=== PATIENT | male | born 1955 | race Caucasian/White ===

== ENCOUNTER 2024-06-19 10:02 | Outpatient (AMB) | payer MEDICARE, SELFPAY ==
[2024-06-19 10:33] VITALS: BMI 35.0
--- NOTE | 2024-06-19 10:33 | A.SPINEOV_ITS ---
Vital Signs 06/19/24 10:33 Height 5 ft 8 in Weight 230 lb BMI 35.0 Intake Visit Reasons: disorder of sacrum Intake Note: Mr. Nelson is here today c/o low back pain that radiates to the legs making it difficult to walk. Exhibitions And Collections Manager Required: No Allergies No Known Allergies Allergy (Verified 06/19/24 10:37) Physical Exam Vital Signs: BMI result Body Mass Index 35.0 Assessment & Plan Assessment & Plan (1) Sacroiliitis, not elsewhere classified: Code(s): M46.1 - Sacroiliitis, not elsewhere classified Category: Medical Plan Dear colleague Thank you for referring Honorio Nelson to the office today with a chief complaint of pain in the right SI joint region. HPI: This 15-year-old male had a fall on his buttocks several years ago and since that time he is suffering from severe pain predominantly on the right side in the SI joint region radiating into the thigh area. 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 Everything else causes severe pain. He denies numbness or weakness. He had an SI joint injection done with lidocaine and steroid that gave him complete relief for 3 days. He said he has never been that happy after that injection. He is referred for a possible SI joint fusion. The following conservative treatment options were tried without success antiinflammatories, tylenol, physical therapy, chiropractic therapy PMH: Hypertension, hypercholesterolemia Medications: Losartan, atorvastatin, amlodipine, escitalopram, acyclovir Allergies: NKDA Social history: Nonsmoker Physical Exam: Pleasant male. SI joint provocative tests are positive on the right side. Motor sensory and reflexes are symmetrically intact. Radiological Studies: MRI of the lumbar spine done at [facility] shows age-appropriate changes in the lumbar spine. Impression/Plan: This 68-year-old male is most likely suffering from sacroiliitis after a traumatic event. The pain is disabling. A diagnostic and therapeutic injection gave him complete relief. I offered him an SI joint fusion, right side. He is tentatively scheduled for 07/30/2024 depending on insurance approval. He will get a preoperative clearance from his primary care physician. Thank you for allowing me to participate in your patients care. total time spent was 50 minutes in counseling ,coordination of plan, personal review of imaging, surgical decision making and subsequent plan Tevin Pennings MD, PhD Spine Fellowship Trained Neurosurgeon Director, [facility] Coding Level of Care Code New Pt Level 4 (49826) Diagnoses Sacroiliitis, not elsewhere classified M46.1
== END 2024-06-19 11:58 | disposition home or self-care (01) ==
PROVIDERS: PCP Family Medicine; Visit Provider Neurological Surgery
DX: M46.1 Sacroiliitis, not elsewhere classified (principal)
CPT/HCPCS: 99204

== ENCOUNTER → 2024-06-19 10:02 | Outpatient (BNVA) | payer MEDICARE, SELFPAY | PROVIDERS: PCP Family Medicine; Visit Provider Neurological Surgery | DX: M46.1 Sacroiliitis, not elsewhere classified (principal) | CPT/HCPCS: 99202 ==

== ENCOUNTER 2024-08-20 14:22 | Outpatient (REF) | payer MEDICARE, SELFPAY ==
--- OUTSIDE RECORDS SUMMARY | 2024-08-20 15:12 | XMS_ITS ---
Patient Encounters Created on: August 17, 2024 Honorio Mccann : 1955 Sex: Male Author Name Jan Gonzalez Address [address] [address] [facility]. Address [address] [address]
== END 2024-08-20 14:23 | disposition home or self-care (01) ==
LOC: HO.HOSX 14:22
PROVIDERS: Visit Provider Physician Assistant
DX: Z13.89 Encounter for screening for other disorder (principal)

== ENCOUNTER 2024-10-21 09:48 | Outpatient (AMB) | payer MEDICARE, SELFPAY ==
--- NOTE | 2024-10-21 09:53 | A.OFFVIS_ITS ---
Vital Signs 10/21/24 09:54 Height 5 ft 8 in Weight 249 lb BMI 37.9 BP 157/79 H Blood Pressure Location Rt brachial Position Sitting Respiration 18 Pulse 62 Pulse Source Pulse Oximeter Pulse Oximetry (%) 98 Oxygen Delivery Method Room Air Intake Visit Reasons: SIJ BLOCK DISCUSSION Brakeshoe Repairer Required: No Allergies No Known Allergies Allergy (Verified 10/21/24 09:55) HPI Comments Details: Honorio is very pleasant 69 years old gentleman who presents in my office with complains on axial lower back pain with minimal radiation into bilateral lower extremities. He reports that he started to feel this pain years ago. He reports unpleasant vibration sensation in the left thigh in conjunction with this pain. He reports that prolonged sitting without the cushion aggravate his pain he reports that walking and standing for long period of time aggravate his pain. Negative Valsalva maneuver, he reports hot showers make his pain better. Because of his pain he can not do activities of daily living, but he can sleep normally, he can take care of himself and he can function normally. He is retired individual. In terms of tissue damage he describes his pain as dull, sore, hurting, aching, heavy sensation. He had multiple images including MRI of the lumbar spine. He went to Dr. Alonso and received from Dr. Stack is bilateral sacroiliac joint injection with steroids!!! This procedure lasted only 4 days. He received multiple sessions of physical therapy and he continues home exercise program at this time. His past medical history is negative. His past surgical history is negative. He denies smoking cigarettes admits drinking alcohol he drinks coffee and caffeinated beverages and he denies recreational drugs. Review of Systems Const All systems reviewed & are unremarkable except as noted in HPI and below ENT Reports Normal hearing present Neuro Reports Normal hearing present, Denies Abnormal speech present, Denies confusion and Denies Sensory deficit (Neuro) Psych Denies confusion Physical Exam Vital Signs: Last Vital Signs Pulse 62 10/21/24 09:54 Resp 18 10/21/24 09:54 BP 157/79 H 10/21/24 09:54 Pulse Ox 98 10/21/24 09:54 Oxygen Delivery Method Room Air 10/21/24 09:54 BMI result Body Mass Index 37.9 Const General: no acute distress; No confusion Nutritional Appearance: obese morbidly obese Orientation/consciousness: patient oriented x3 and No confusion Eyes General: appearance normal, both eyes and all related structures Pupils: Equal, round and reactive pupils present EOM: EOMs intact bilaterally Neck Neck: Yes full ROM Chest Chest palpation & inspection: normal inspection of the chest Resp Effort & Inspection: normal respiratory effort, able to speak in complete sentences, normal respiratory pattern, no audible wheezes and no cough Cardio Jugular venous distension: no JVD GI Inspection: Yes normal to inspection Back/Spine/Pelvis Other: There is no tenderness on palpation in paraspinal spinal region lumbar spine. There is minimal tenderness on palpation in projection of the sacral bone. There is no tenderness on palpation in projection of the sacroiliac joints. Nicanor test is negative bilaterally. Gaenslen test is negative bilaterally. Pelvic distraction test is negative bilaterally. On performance of Nicanor test patient complains on pain in the groin but NOT the pain in the projection of the sacroiliac joints on the back. Valsalva maneuver is negative bilaterally. Loading test is equivocal bilaterally. There is minimal tenderness on palpation in paraspinal region in the projection of the L5-S1 area. Neuro General: patient oriented x3, gait normal and No confusion Cranial nerves: Yes CN's II-XII intact bilaterally, Yes Equal, round and reactive pupils present, Yes Normal hearing present and Yes Ability to bilaterally elevate shoulders present Speech: No Abnormal speech present Gait exam (Neuro): Normal gait present Motor exam (neuro): 5/5 motor strength present throughout Sensory Exam: No Sensory deficit (Neuro) Extrem General: No pedal edema Psych Speech and movement: Normal speech and movement present Affect: normal affect Attitude: cooperative Thought process: Normal thought process present Thought content: Normal thought content present Insight: Good insight present (Psych) Judgement: Good judgement present (Psych) Assessment & Plan Assessment & Plan (1) Vertebrogenic low back pain: Code(s): M54.51 - Vertebrogenic low back pain Category: Medical (2) Spondylosis of lumbar region without myelopathy or radiculopathy: Code(s): M47.816 - Spondylosis without myelopathy or radiculopathy, lumbar region Category: Medical (3) Chronic pain syndrome: Code(s): G89.4 - Chronic pain syndrome Category: Medical Plan On physical exam as above there is no signs of sacroiliitis or sacroiliac joint dysfunction of this patient. Possibility exists that this patient has facet joints pain and I offered him to go for diagnostic medial branch block bilateral L3-L4 dorsal ramus L5. Also I was asking this patient to sign medical information release note for me and we will receive the information from Dr. Alonso who apparently performed injection with steroids into patient's sacroiliac joints. If it was done with steroids it was rendered non valid diagnostic test. I also suspect that with history of prolonged sitting pain this patient may have vertebra genic pain syndrome. To evaluate this condition I need to have the MRI images of the lumbar spine of this patient. He had an MRI performed that [facility] I requested the patient to bring me the disc from [facility] to evaluate that MRI. Patient Instructions: I here by testify that I spent 45 minutes in conversation with this patient as well as planning his care and organizing this note. Coding Level of Care Code New Pt Level 4 (33922) Diagnoses Vertebrogenic low back pain M54.51 Spondylosis of lumbar region without myelopathy or radiculopathy M47.816 Chronic pain syndrome G89.4
[2024-10-21 09:54] VITALS: BP 157/79; PULSE 62; RESP 18; O2SAT 98; BMI 37.9
== END 2024-10-21 10:32 | disposition home or self-care (01) ==
LOC: HO.PMC 09:48
PROVIDERS: PCP Family Medicine; Referring Provider Physician Assistant; Visit Provider Anesthesiology
DX: M54.51 Vertebrogenic low back pain (principal); M47.816 Spondylosis without myelopathy or radiculopathy, lumbar region; G89.4 Chronic pain syndrome
CPT/HCPCS: 99204

== ENCOUNTER → 2024-10-21 09:48 | Outpatient (BNVA) | payer MEDICARE, SELFPAY | PROVIDERS: PCP Family Medicine; Referring Provider Physician Assistant; Visit Provider Anesthesiology | DX: M54.51 Vertebrogenic low back pain (principal); M47.816 Spondylosis without myelopathy or radiculopathy, lumbar region; G89.4 Chronic pain syndrome | CPT/HCPCS: 99202 ==

== ENCOUNTER 2025-01-05 06:12 | Outpatient (REF) | payer MEDICARE, SELFPAY ==
--- NOTE | ~2025-01-05 | FL_ITS ---
EXAMINATION: FL GUIDANCE ONLY HISTORY: M47.816 - Spondylosis without myelopathy or radiculopathy, lumbar region COMPARISON: None available. TECHNIQUE: Fluoroscopy time: 1 minute, 3 seconds. Cumulative Dose: 18.9 mGy. DAP: 527.02 uGym2 Images: 13. FINDINGS: Fluoroscopic spot films of the lumbar spine in the AP projection demonstrate needles and contrast material in the regions of the bilateral L3-4, L4-5, and L5-S1 facet joints. FL/FL guidance in treatment room IMPRESSION: Fluoroscopy during procedure. Please see procedure report for additional information. Electronically signed by: Can Foster MD 01/07/2025 07:21 AM EDT
--- OUTSIDE RECORDS SUMMARY | 2025-01-05 06:14 | XMS_ITS | Encounter Summary ---
Author Organization [facility] Address [address] [place] [address] Phone Care Team Providers Care Hospital Liaison Name Role Phone Paris Osuna MD Primary Care Provider + [phone] Alvarado Rangel DO Primary Care Provider + [phone] Reason for Referral * Physical Therapy (Routine) - Closed Specialty Diagnoses / Procedures Referred By Contac t Referred To Contact Physical Therapy Diagnoses Encounter for rehabilitation Paris Osuna MD [address] [place] [address] Phone: tel: fax: [email or web address] [place] [address] Phone: tel: Referral ID Status Reason Start Date Expiration Date Visits Re quested Visits Authorized [id number] Closed 06/08/2022 04/14/2023 99 99 Encounter Details Date Type Department Care Team (Latest Contact Info) Description 06/08/2022 Transcribe Orders [facility] [address] [place] [address] Paris Osuna MD [address] [place], [place] [id number] [email or web address] Encounter for rehabilitation (Primary Dx) Social History Tobacco Use Types Packs/Day Years Used Date Smoking Tobacco: Never Smokeless Tobacco: Never Alcohol Use Standard Drinks/Week Comments Yes 2 (1 standard drink = 0.6 oz pur e alcohol) Sex and Gender Information Value Date Recorded Sex Assigned at Not on file Legal Sex Male 9:57 PM EDT Gender Identity Not on file Sexual Orientation Not on file documented as of this encounter Plan of Treatment Not on file documented as of this encounter Procedures Procedure Name Priority Date/Time Associated Diagnosis Comments AMB REFERRAL TO [facility] PHYSICAL THERAPY Routine 06/20/2022 7:40 AM EST Encounter for rehabilitation documented in this encounter Results * Ambulatory referral to [facility] Physical Therapy (06/20/2022 7:40 AM EST) Other us Paris Osuna MD AMB [facility] REFERRALS Final R esult documented in this encounter Visit Diagnoses Diagnosis Encounter for rehabilitation- Primary documented in this encounter Care Teams Hospital Liaison Relationship Specialty Start Date End Date Paris Osuna MD [address] [place] [address] [email or web address] PCP - General Family Medicine 04/21/2012/07 Alvarado Rangel DO [address] [address] PCP - General Family Medicine 12/09/23 documented as of this encounter Additional Source Comments The information contained in this document represents components of the legal health record. It is not the complete legal health record.[facility]
--- OUTSIDE RECORDS SUMMARY | 2025-01-05 06:14 | XMS_ITS | Clinical Summary ---
Author Organization [facility] Address [address] [id number] Phone Care Team Providers Care Debarker Operator Name Role Phone Alvarado Rangel DO Primary Care Provider Allergies No known active allergies Medications escitalopram oxalate (LEXAPRO) 20 MG tablet Take 20 mg by mouth daily. Active atorvastatin (LIPITOR) 20 MG tablet Take 20 mg by mouth daily. Active acyclovir (ZOVIRAX) 400 MG tablet Take 400 mg by mouth daily as needed. Active aspirin 81 MG EC tablet Take 81 mg by mouth daily. Active multivitamin-min erals-lutein (CENTRUM SILVER) Tab Take 1 tablet by mouth daily. Active glucosamine sulfate dipot chlr (GLUCOSAMINE SULFATE DIPOTASSIUM CHLORIDE) 1,000 mg Cap capsule Take 1,000 mg by mouth 2 (two) times a day. Active bacillus coagulans-inulin 1 billion-250 cell-mg Cap Take 250 mg by mouth daily. Active ALPRAZolam (XANAX) 0.5 MG tablet Take 0.5 mg by mouth nightly at bedtime as needed for sleep. Active Active Problems Problem Noted Date Diagnosed Date Disorder of sacrum 12/26/2023 Social History Tobacco Use Types Packs/Day Years Used Date Smoking Tobacco: Never Smokeless Tobacco: Never Alcohol Use Standard Drinks/Week Comments Yes 2 (1 standard drink = 0.6 oz pur e alcohol) Education Answer Date Recorded Are you interested in more education? Not on haris e 08/10/2022 Are you concerned about learning? Not on file 08/10/2022 No 08/10/2022 No 08/10/2022 Digital Access Answer Date Recorded No 09/08/2022 No 09/08/2022 No 09/08/2022 Reliable internet access at home? Not on file 09/08/2022 Device with a working camera? Not on file Sex and Gender Information Value Date Recorded Sex Assigned at Not on file Legal Sex Male 9:57 PM EDT Gender Identity Not on file Sexual Orientation Not on file Last Filed Vital Signs Vital Sign Reading Time Taken Comments Blood Pressure 139/65 04/21/2020 8:23 AM EST Pulse 72 04/21/2020 7:33 AM EST Temperature 36 C (96.8 F) 04/21/2020 8:09 AM EST Respiratory Rate 16 04/21/2020 8:23 AM EST Oxygen Saturation 96% 04/21/2020 8:23 AM EST Inhaled Oxygen Concentration - - Weight 108.9 kg (240 lb) 02/17/2024 2:38 PM EST Height 172.7 cm (5' 8 ) 02/17/2024 2:38 PM EST Body Mass Index 36.49 02/17/2024 2:38 PM EST Plan of Treatment Health Maintenance Due Date Last Done Comments LIPID PANEL 1955 DEPRESSION SCREENING 1965 HEPATITIS C SCREENING 06/30/1971 COLOGUARD 1998 FIT TEST 1998 FOBT 1998 SIGMOIDOSCOPY 1998 VIRTUAL COLONOSCOPY 1998 ZOSTER VACCINES (2 of 3) 03/27/2017 01/30/2017 INFLUENZA VACCINE (#1) 2024 , 03/23/2021, 02/02/2020, Additional history exists COVID-19 VACCINE ( season) 2024 07/28/2021, 03/02/2021, 07/21/2020, Additional history exists Adult Td,Tdap Booster 01/26/2025 01/26/2015, 004 RSV VACCINE (1 - 1-dose 75+ series) 2028 COLONOSCOPY 04/21/2030 04/21/2020 COLORECTAL CANCER SCREENING 04/21/2030 SMOKING STATUS SCREENING (Once After 26 Yrs) Completed 04/21/2020 PNEUMOCOCCAL VACCINES (50+ years) Completed 10/07/2020, 03/13/2019 HEPATITIS A VACCINES Aged Out No long er eligible based on patient's age to complete this topic HIB VACCINES Aged Out No longer eligi ble based on patient's age to complete this topic MENINGOCOCCAL VACCINES (ACWY) Aged Out No longer eligible based on patient's age to complete this topic MENINGOCOCCAL VACCINES (B) Aged Out N o longer eligible based on patient's age to complete this topic Medical Devices Not on file Procedures Procedure Name Priority Date/Time Associated Diagnosis Comments ENDOSCOPY, COLON 04/21/2020 7:24 AM EST from Last 3 Months or Most Recently Relevant to Health Maintenance Results * ENDOSCOPY, COLON (04/21/2020 7:24 AM EST) Narrative Transcriptions Chauncey Araya MD - 04/21/2020 7:24 AM EST Patient Name: Honorio Nelson Attending MD:: CHAUNCEY ARAYA MD Procedure Date: 04/21/2020 7:24 AM Date of : 1955 Age: 64 Admit Type: Outpatient Gender: Male Room: [place] [address] Referring MD: Paris Osuna Exam Type: Colonoscopy Indications: Last colonoscopy: May 2011, Abdominal pain inthe right upper quadrant, Change in bowel habits Medications: Propofol per Anesthesia Procedure: Informed consent was obtained from the patient after discussion of the indications, limitations, alternatives, benefits, and risks of the procedure. Risks specifically discussed include but are not limited to medication reactions, missed lesions, bleeding, perforation, or the need for emergentsurgery. Throughout the procedure, the patient's bloodpressure, pulse, end-tidal CO2, and oxygen saturations were monitored continuously. The Olympus adult variable colonoscope [id number] #5was introduced through the anus and advanced to the terminal ileum, with identification of theappendiceal orifice and IC valve. The terminal ileum, ileocecal valve, appendiceal orifice, and rectum were photographed. The colonoscopy was performed without difficulty. The patient tolerated the procedurewell. The quality of the bowel preparation was excellent.The bowel preparation used was GoLYTELY via split dose instruction. Complications: No immediate complications. Estimated blood loss:None. Findings: The perianal and digital rectal examinations were normal. Pertinent negatives include normal prostate (size, shape, and consistency). The retroflexed view of the distal rectum and anal verge was normal and showed no anal or rectal abnormalities. Many medium-mouthed diverticula were found in the sigmoid colon. The exam was otherwise without abnormality. The terminal ileum appeared normal. Retroflexion in the right colon was performed. Biopsies for histology were taken with a coldforceps from the ascending colon, transverse colon and descending colon for evaluation of microscopiccolitis. Impression: - The distal rectum and anal verge are normal on retroflexion view. - Moderate diverticulosis in the sigmoid colon. - The examination was otherwise normal. - The examined portion of the ileum was normal. - Biopsies were taken with a cold forceps from the ascending colon, transverse colon and descendingcolon for evaluation of microscopic colitis. Recommendation: - Await pathology results. - Use fiber, for example Citrucel, Fibercon, Konsylor Metamucil. - Repeat colonoscopy in 10 years for screeningpurposes. CHAUNCEY ARAYA MD 04/21/2020 8:12:09 AM This report has been signed electronically. Number of Addenda: 0 Note Initiated On: 04/21/2020 7:24 AM Procedure Code(s): --- Professional --- 77971, Colonoscopy, flexible; with biopsy, single or multiple --- Technical --- 05384, Colonoscopy, flexible; with biopsy, single or multiple Diagnosis Code(s): --- Professional --- R10.11, Right upper quadrant pain R19.4, Change in bowel habit K57.30, Diverticulosis of large intestine without perforation or abscess without bleeding --- Technical --- R10.11, Right upper quadrant pain R19.4, Change in bowel habit K57.30, Diverticulosis of large intestine without perforation or abscess without bleeding CPT copyright 2018 [employer]. All rights reserved. The codes documented in this report are preliminary and upon coder operator reviewmay be revised to meet current compliance requirements. Procedure Date: 04/21/2020 7:24:16 AM [address] [place] [address] Paris Osuna MD GI PROCEDURE ORDERABLES F inal Result from Last 3 Months or Most Recently Relevant to Health Maintenance Insurance MEDICARE PART A & B [place] BLUE REPLACEMENT MEDICARE PART A & B MEDICARE PPO BLUE REPLACEMENT MEDICARE PART A & B MEDICARE PART A & B MEDICARE PART A & [place] BLUE RE[place]AC[place] MEDICARE PART A & B MEDICARE PART A & B [facility] MEDICARE PPO BLUE REPLACEMENT MEDICARE PART A & B [facility] MEDICARE PPO BLUE REPLACEMENT MEDICARE PART A & B [place] BLUE REPLACEMENT Care Teams Debarker Operator Relationship Specialty Start Date End Date Alvarado Rangel DO [address] [address] PCP - General Family Medicine 12/09/23 Additional Source Comments The information contained in this document represents components of the legal health record. It is not the complete legal health record.[facility]
--- OUTSIDE RECORDS SUMMARY | 2025-01-05 06:14 | XMS_ITS | Encounter Summary ---
Author Organization [facility] Address [address] [place] [address] [place] [address] Phone Care Team Providers Care Churn Operator Margarine Name Role Phone Paris Osuna MD Primary Care Provider [phone] Alvarado Rangel DO Primary Care Provider [phone] Encounter Details Date Type Department Care Team (Latest Contact Info) Description 05/23/2021 Transcribe Orders Virtual Department [address] [place] [address] Emmanuel Araya MD [address] [place] [phone] [email or web address] RUQ pain (Primary Dx) Social History Tobacco Use Types [...] on file documented as of this encounter Visit Diagnoses Diagnosis RUQ pain- Primary Abdominal pain, right upper quadrant documented in this encounter Care Teams Churn Operator Margarine Relationship Specialty Start Date End Date Paris Osuna MD [address] [place] [address] [email or web address] PCP - General Family Medicine 04/21/2012/07 Alvarado Rangel DO [address] [address] PCP - General Family Medicine 12/09/23 documented as of this encounter Additional Source Comments The information contained in this document represents components of the legal health record. It is not the complete legal health record.[facility]
--- OUTSIDE RECORDS SUMMARY | 2025-01-05 06:14 | XMS_ITS | Encounter Summary ---
Author Organization [facility] Address [address] [facility] [address] [place] [address] Phone Care Team Providers Care Evp Managing Director Name Role Phone Alvarado Rangel DO Primary Care Provider Encounter Details Date Type Department Care Team ([facility] st Contact Info) Description 01/10/2024 Procedure Pass [facility], [address] [address] Social History Tobacco Use Types Packs/Day Years [...] documented as of this encounter Visit Diagnoses Not on filedocumented in this encounter Care Teams Evp Managing Director Relationship Specialty Start Date End Date Alvarado Rangel DO [address] [facility] [address] [place] [address] PCP - General Family Medicine 12/09/23 documented as of this encounter Additional Source Comments The information contained in this document represents components of the legal health record. It is not the complete legal health record.[facility]
--- OUTSIDE RECORDS SUMMARY | 2025-01-05 06:14 | XMS_ITS | Encounter Summary ---
Author Organization [facility] Address [address] [place] [address] Phone Care Team Providers Care Plant Operations Engineer Name Role Phone Paris Osuna MD Primary Care Provider [phone] Alvarado Rangel DO Primary Care Provider [phone] Encounter Details Date Type Department Care Team ([facility] st Contact Info) Description 04/21/2020 Procedure Pass [facility] Endoscopy Admitting Dept Virtual Department [address] [place] [address] Social History Tobacco Use Types Packs/Day Years [...] on filedocumented in this encounter Care Teams Plant Operations Engineer Relationship Specialty Start Date End Date Paris Osuna MD [address] [place] [address] [email or web address] PCP - General Family Medicine 04/21/2012/07 Alvarado Rangel DO [address] [address] PCP - General Family Medicine 12/09/23 documented as of this encounter Additional Source Comments The information contained in this document represents components of the legal health record. It is not the complete legal health record.[facility]
== END 2025-01-05 06:13 | disposition home or self-care (01) ==
LOC: CF 06:12
PROVIDERS: Visit Provider Anesthesiology
DX: M47.816 Spondylosis without myelopathy or radiculopathy, lumbar region (principal)
CPT/HCPCS: 64493; 64494; J2003; J2795; Q9967

== ENCOUNTER 2025-01-05 09:46 | Outpatient (AMB) | payer MEDICARE, SELFPAY ==
--- NOTE | 2025-01-05 09:57 | MHC.OFFVIS ---
Vital Signs 01/05/25 09:58 Height 5 ft 8 in Weight 260 lb BMI 39.5 BP 145/69 H Blood Pressure Location Lt brachial Position Sitting Respiration 18 Pulse 65 Pulse Source Pulse Oximeter Pulse Oximetry (%) 95 Oxygen Delivery Method Room Air Intake Visit Reasons: Bilateral Diagnostic L3-L4-DR L5 MBB Drawbridge Operator Required: No Allergies No Known Allergies Allergy (Verified 10/21/24 09:55) Physical Exam Vital Signs: Last Vital Signs Pulse 65 01/05/25 09:58 Resp 18 01/05/25 09:58 BP 145/69 H 01/05/25 09:58 Pulse Ox 95 01/05/25 09:58 Oxygen Delivery Method Room Air 01/05/25 09:58 BMI result Body Mass Index 39.5 Assessment & Plan Assessment & Plan (1) Spondylosis of lumbar region without myelopathy or radiculopathy: Code(s): M47.816 - Spondylosis without myelopathy or radiculopathy, lumbar region Category: Medical Plan Diagnostic medial branch block L3,L4 dorsal ramus L5 bilateral.? ? ?Informed consent was explained to the patient. All questions were explained and? answered.? The patient was taken inside the operating room where he was positioned prone on the operating table. Time-out was performed delineating correct site, side, the nature of the procedure, patient's allergy, . All operating room staff was participating in OR time-out procedure. ? ? The lower back was prepped with ChloraPrep and draped with sterile utility towels.? C-arm was brought over the operating field and sq picture of L4-, L5 vertebra and S1 AREA were delineated on the screen.? Point of interest were delineated as confluence of superior articular process of L4 and L5 vertebra bilaterally with corresponding transverse processes as well as confluence of the sacral alae bilaterally with superior articular process of S1.? The projection of the point of interest to the skin were injected with the small amount of local anesthetic lidocaine 2% mixed with ropivacaine 0.5% 1-1 approximately 1 cc.? After that 22 gauge 3.5 inch spinal needle was driven sequentially to the points of interest in tunnel vision fashion. After needles gently contacted the bone at the point of interests the needle was injected with small amount of the contrast.? The injection of the contrast did not demonstrate any intravascular or intrathecal spread of the contrast.? After that injection of the? ropivacaine 0.5%-1cc was performed at each needle location.?After that the needles were removed and Bandaids were applied. Orders: Orders FL guidance in treatment room Today M47.816 - Spondylosis without myelopathy or radiculopathy, lumbar region Coding Level of Care Code Procedure Only Diagnoses Spondylosis of lumbar region without myelopathy or radiculopathy M47.816
[2025-01-05 09:58] VITALS: BP 145/69; PULSE 65; RESP 18; O2SAT 95; BMI 39.5
== END 2025-01-05 10:47 | disposition home or self-care (01) ==
LOC: HO.PMCPRC 09:46
PROVIDERS: PCP Family Medicine; Visit Provider Anesthesiology
DX: M47.816 Spondylosis without myelopathy or radiculopathy, lumbar region (principal)
CPT/HCPCS: 64493; 64494

== ENCOUNTER 2025-01-07 09:49 | Outpatient (AMB) | payer MEDICARE, SELFPAY ==
[2025-01-07 09:59] VITALS: BP 154/86; PULSE 75; RESP 18; O2SAT 97
--- NOTE | 2025-01-07 09:59 | MHC.OFFVIS ---
Vital Signs 01/07/25 09:59 Weight 250 lb BP 154/86 H Blood Pressure Location Lt brachial Position Sitting Respiration 18 Pulse 75 Pulse Source Pulse Oximeter Pulse Oximetry (%) 97 Oxygen Delivery Method Room Air Intake Visit Reasons: S/P Bilateral Diagnostic L3-L4-DR L5 MBB Director Critical Care Required: No Allergies No Known Allergies Allergy (Verified 01/07/25 09:58) HPI Comments Details: Honorio is back in my office after diagnostic bilateral medial branch block. The patient reported absence of pain immediately after the procedure. He stated that his pain was very low for the 1st 5 hours after the procedure. He admits that the heaviness of his lower extremities remain however he understood that the heaviness and pain in the legs maybe related to other issues in his lumbar spine. He reported excellent activities of daily living and perfect mobility after the injection. We discussed possibility of treating his pain with to modalities: Radiofrequency ablation of the L3, L4, dorsal ramus L5 medial branches bilateral. As well as sprint PNS L5 bilateral to alleviate his pain. I explained to the patient that radiofrequency ablation would be very difficult to perform because of significant scoliosis and rotational deformity of the spine. He after my explanation decided to go for Sprint PNS. Prior: Axial lower back pain with minimal radiation into bilateral lower extremities. The pain is mostly axial and most likely facetogenic in nature. He reports that he started to feel this pain years ago. He reports unpleasant vibration sensation in the left thigh in conjunction with this pain. He reports that prolonged sitting without the cushion aggravate his pain he reports that walking and standing for long period of time aggravate his pain. Negative Valsalva maneuver, he reports hot showers make his pain better. He went to Dr. Alonso and received from Dr. Stack is bilateral sacroiliac joint injection with steroids!!! This procedure lasted only 4 days. He received multiple sessions of physical therapy and he continues home exercise program at this time. He reports only minimal help from HEP. Review of Systems Const All systems reviewed & are unremarkable except as noted in HPI and below ENT Reports Normal hearing present Neuro Reports Normal hearing present, Denies Abnormal speech present, Denies confusion and Denies Sensory deficit (Neuro) Psych Denies confusion Physical Exam Vital Signs: Last Vital Signs Pulse 75 01/07/25 09:59 Resp 18 01/07/25 09:59 BP 154/86 H 01/07/25 09:59 Pulse Ox 97 01/07/25 09:59 Oxygen Delivery Method Room Air 01/07/25 09:59 Const General: no acute distress; No confusion Nutritional Appearance: obese morbidly obese Orientation/consciousness: patient oriented x3 and No confusion Eyes General: appearance normal, both eyes and all related structures Pupils: Equal, round and reactive pupils present EOM: EOMs intact bilaterally Neck Neck: Yes full ROM Chest Chest palpation & inspection: normal inspection of the chest Resp Effort & Inspection: normal respiratory effort, able to speak in complete sentences, normal respiratory pattern, no audible wheezes and no cough Cardio Jugular venous distension: no JVD GI Inspection: Yes normal to inspection Back/Spine/Pelvis Other: There is no tenderness on palpation in paraspinal spinal region lumbar spine. There is minimal tenderness on palpation in projection of the sacral bone. There is no tenderness on palpation in projection of the sacroiliac joints. Nicanor test is negative bilaterally. Gaenslen test is negative bilaterally. Pelvic distraction test is negative bilaterally. On performance of Nicanor test patient complains on pain in the groin but NOT the pain in the projection of the sacroiliac joints on the back. Valsalva maneuver is negative bilaterally. Loading test is equivocal bilaterally. There is minimal tenderness on palpation in paraspinal region in the projection of the L5-S1 area. Neuro General: patient oriented x3, gait normal and No confusion Cranial nerves: Yes CN's II-XII intact bilaterally, Yes Equal, round and reactive pupils present, Yes Normal hearing present and Yes Ability to bilaterally elevate shoulders present Speech: No Abnormal speech present Gait exam (Neuro): Normal gait present Motor exam (neuro): 5/5 motor strength present throughout Sensory Exam: No Sensory deficit (Neuro) Extrem General: No pedal edema Psych Speech and movement: Normal speech and movement present Affect: normal affect Attitude: cooperative Thought process: Normal thought process present Thought content: Normal thought content present Insight: Good insight present (Psych) Judgement: Good judgement present (Psych) Assessment & Plan Assessment & Plan (1) Vertebrogenic low back pain: Code(s): M54.51 - Vertebrogenic low back pain Category: Medical (2) Spondylosis of lumbar region without myelopathy or radiculopathy: Code(s): M47.816 - Spondylosis without myelopathy or radiculopathy, lumbar region Category: Medical (3) Chronic pain syndrome: Code(s): G89.4 - Chronic pain syndrome Category: Medical Plan On physical exam as above there is no signs of sacroiliitis or sacroiliac joint dysfunction of this patient. Most likely his pain is facetogenic in nature. Results of diagnostic L3, L4, dorsal ramus L5 bilateral discussed as above. Patient was given options to treat his pain as RFA versus PNS. He chose to go for PNS. I will schedule him for the right-sided and after that for the left-sided procedure. Patient Instructions: I here by testify that I spent 32 minutes in conversation with this patient as well as planning his care and organizing this note. Coding Level of Care Code Est Pt Level 4 (22126) Diagnoses Vertebrogenic low back pain M54.51 Spondylosis of lumbar region without myelopathy or radiculopathy M47.816 Chronic pain syndrome G89.4
--- OUTSIDE RECORDS SUMMARY | 2025-01-07 11:44 | XMS_ITS | Encounter Summary ---
Author Organization [facility] Address [address] [place] [address] Phone Care Team Providers Care Employee Development Director Name Role Phone Prais Osuna MD Primary Care Provider [phone] Alvarado Rangel DO Primary Care Provider [phone] Encounter Details Date Type Department Care Team ([facility] st Contact Info) Description 04/21/2020 Procedure Pass [facility] Endoscopy Admitting Dept Virtual Department [address] [place] [id number] Social History Tobacco Use Types Packs/Day Years [...] on filedocumented in this encounter Care Teams Employee Development Director Relationship Specialty Start Date End Date Paris Osuna MD [address] [place] [address] [email or web address] PCP - General Family Medicine 04/21/2012/07 Alvarado Rangel DO [address] [address] PCP - General Family Medicine 12/09/23 documented as of this encounter Additional Source Comments The information contained in this document represents components of the legal health record. It is not the complete legal health record.[facility]
--- OUTSIDE RECORDS SUMMARY | 2025-01-07 11:44 | XMS_ITS | Encounter Summary ---
Author Organization [facility] Address [address] [place] [address] [place] [address] Phone Care Team Providers Care Customs Collector Name Role Phone Paris Osuna MD Primary Care Provider [phone] Alvarado Rangel DO Primary Care Provider [phone] Encounter Details Date Type Department Care Team (Latest Contact Info) Description 05/23/2021 Transcribe Orders Virtual Department [address] [place] [address] Emmanuel Araya MD [address] [place] [address] [email or web address] RUQ pain (Primary Dx) Social History Tobacco [...] quadrant documented in this encounter Care Teams Customs Collector Relationship Specialty Start Date End Date Paris Osuna MD [address] [place] [address] [email or web address] PCP - General Family Medicine 04/21/2012/07 Alvarado Rangel DO [address] [address] PCP - General Family Medicine 12/09/23 documented as of this encounter Additional Source Comments The information contained in this document represents components of the legal health record. It is not the complete legal health record.[facility]
--- OUTSIDE RECORDS SUMMARY | 2025-01-07 11:44 | XMS_ITS | Encounter Summary ---
Author Organization [facility] Address [address] [facility] [address] [place] [address] Phone Care Team Providers Care Brake Repairer Air Name Role Phone Alvarado Rangel DO Primary Care Provider [phone] Encounter Details Date Type Department Care Team ([facility] st Contact Info) Description 01/10/2024 Procedure Pass [facility], [address] [address] Social History Tobacco Use Types Packs/Day Years [...] on filedocumented in this encounter Care Teams Brake Repairer Air Relationship Specialty Start Date End Date Alvarado Rangel DO [address] [facility] [address] [place] [address] PCP - General Family Medicine 12/09/23 documented as of this encounter Additional Source Comments The information contained in this document represents components of the legal health record. It is not the complete legal health record.[facility]
--- OUTSIDE RECORDS SUMMARY | 2025-01-07 11:44 | XMS_ITS | Clinical Summary ---
Author Organization [facility] Address [address] [id number] Phone Care Team Providers Care Furniture Restorer Name Role Phone Alvarado Rangel DO Primary [...] 66 Admit Type: Outpatient Gender: Male Room: [place] [address] Referring MD: Paris Osuna Exam Type: Colonoscopy [...] monitored continuously. The Olympus adult variable colonoscope [id number] #5was introduced through the anus and advanced [...] 7:24 AM Procedure Code(s): --- Professional --- 57822, Colonoscopy, flexible; with biopsy, single or multiple --- Technical --- 25739, Colonoscopy, flexible; with biopsy, single or multiple Diagnosis Code(s): --- Professional --- R10.11, Right upper quadrant pain R19.4, Change in bowel habit K57.30, Diverticulosis of large intestine without perforation or abscess without bleeding --- Technical --- R10.11, Right upper quadrant pain R19.4, Change in bowel habit K57.30, Diverticulosis of large intestine without perforation or abscess without bleeding CPT copyright 2018 [employer]. All rights reserved. The codes documented in this report are preliminary and upon property maintenance technician reviewmay be revised to meet current compliance requirements. Procedure Date: 04/21/2020 7:24:16 AM [address] [place] [address] Paris Osuna MD GI PROCEDURE [...] & B MEDICARE PART A & B [place] MEDICARE PPO BLUE REPLACEMENT MEDICARE PART A & B [place] MEDICARE PPO BLUE REPLACEMENT MEDICARE PART A & B [place] BLUE REPLACEMENT Care Teams Furniture Restorer Relationship Specialty Start Date End Date Alvarado Rangel DO [address] [address] PCP - General Family Medicine 12/09/23 Additional Source Comments The information contained in this document represents components of the legal health record. It is not the complete legal health record.[facility]
--- OUTSIDE RECORDS SUMMARY | 2025-01-07 11:44 | XMS_ITS | Encounter Summary ---
Author Organization [facility] Address [address] [place] [address] Phone Care Team Providers Care Heavy Coil Winder Name Role Phone Paris Osuna MD Primary Care Provider [phone] Alvarado Rangel DO Primary Care Provider [phone] Reason for Referral * Physical Therapy (Routine) - Closed Specialty Diagnoses / Procedures Referred By Contac t Referred To Contact Physical Therapy Diagnoses Encounter for rehabilitation Paris Osuna MD [address] [place] [address] Phone: tel: fax: [email or web address] [address] [place] [address] Phone: tel: Referral ID Status Reason Start Date Expiration Date Visits Re quested Visits Authorized [id number] Closed 06/08/2022 04/14/2023 99 99 Encounter Details Date Type Department Care Team (Latest Contact Info) Description 06/08/2022 Transcribe Orders [facility] [address] [place] [address] Paris Osuna MD [address] [place], [place] [phone] [email or web address] Encounter for rehabilitation (Primary Dx) Social History [...] Date/Time Associated Diagnosis Comments AMB REFERRAL TO [facility] PHYSICAL THERAPY Routine 06/20/2022 7:40 AM EST Encounter for rehabilitation documented in this encounter Results * Ambulatory referral to [facility] Physical Therapy (06/20/2022 7:40 AM EST) Other us Paris Osuna MD AMB [facility] REFERRALS Final R esult documented in this encounter Visit Diagnoses Diagnosis Encounter for rehabilitation- Primary documented in this encounter Care Teams Heavy Coil Winder Relationship Specialty Start Date End Date Paris Osuna MD [address] [place] [address] [email or web address] PCP - General Family Medicine 04/21/2012/07 Alvarado Rangel DO [address] [address] PCP - General Family Medicine 12/09/23 documented as of this encounter Additional Source Comments The information contained in this document represents components of the legal health record. It is not the complete legal health record.[facility]
== END 2025-01-07 10:57 | disposition home or self-care (01) ==
LOC: HO.PMC 09:49
PROVIDERS: PCP Family Medicine; Visit Provider Anesthesiology
DX: M54.51 Vertebrogenic low back pain (principal); M47.816 Spondylosis without myelopathy or radiculopathy, lumbar region; G89.4 Chronic pain syndrome
CPT/HCPCS: 99214

== ENCOUNTER → 2025-01-07 09:49 | Outpatient (BNVA) | payer MEDICARE, SELFPAY | PROVIDERS: PCP Family Medicine; Visit Provider Anesthesiology | DX: M54.41 Lumbago with sciatica, right side (principal); M47.816 Spondylosis without myelopathy or radiculopathy, lumbar region; G89.4 Chronic pain syndrome | CPT/HCPCS: 99212 ==

== ENCOUNTER 2025-03-19 07:50 | Day surgery (SDC) | payer MEDICARE, SELFPAY ==
--- OUTSIDE RECORDS SUMMARY | 2025-03-03 12:40 | XMS_ITS | Encounter Summary ---
Author Organization [facility] Address [address] [facility] [address] [place] [address] Phone Care Team Providers Care Inside Wirer Name Role Phone Alvarado Rangel DO Primary Care Provider Encounter Details Date Type Department Care Team ([facility] st Contact Info) Description 01/10/2024 Procedure Pass [facility], [address] [address] Social History Tobacco Use Types Packs/Day Years [...] on filedocumented in this encounter Care Teams Inside Wirer Relationship Specialty Start Date End Date Alvarado Rangel DO [address] [facility] [address] [place] [address] PCP - General Family Medicine 12/09/23 documented as of this encounter Additional Source Comments The information contained in this document represents components of the legal health record. It is not the complete legal health record.[facility]
--- OUTSIDE RECORDS SUMMARY | 2025-03-03 12:40 | XMS_ITS | Encounter Summary ---
Author Organization [facility] Address [address] [place] [address] Phone Care Team Providers Care Wool Washer Feeder Name Role Phone Paris Osuna MD Primary Care Provider [phone] Alvarado Rangel DO Primary Care Provider [phone] Encounter Details Date Type Department Care Team ([facility] st Contact Info) Description 04/21/2020 Procedure Pass [facility] Endoscopy Admitting Dept Virtual Department [address] [place] [address] Social History Tobacco Use Types Packs/Day Years [...] on filedocumented in this encounter Care Teams Wool Washer Feeder Relationship Specialty Start Date End Date Paris Osuna MD [address] [place] [address] [email or web address] PCP - General Family Medicine 04/21/2012/07 Alvarado Rangel DO [address] [address] PCP - General Family Medicine 12/09/23 documented as of this encounter Additional Source Comments The information contained in this document represents components of the legal health record. It is not the complete legal health record.[facility]
--- OUTSIDE RECORDS SUMMARY | 2025-03-03 12:40 | XMS_ITS | Encounter Summary ---
Author Organization [facility] Address [address] [place] [address] [place] [address] Phone Care Team Providers Care Compressor Operator Adjuster Name Role Phone Paris Osuna MD Primary Care Provider [phone] Alvarado Rangel DO Primary Care Provider [phone] Encounter Details Date Type Department Care Team (Latest Contact Info) Description 05/23/2021 Transcribe Orders Virtual Department [address] [place] [address] Emmanuel Araya MD [address] [place] [address] [email or web address] RUQ pain (Primary Dx) Social History Tobacco [...] quadrant documented in this encounter Care Teams Compressor Operator Adjuster Relationship Specialty Start Date End Date Paris Osuna MD [address] [place] [address] [email or web address] PCP - General Family Medicine 04/21/2012/07 Alvarado Rangel DO [address] [address] PCP - General Family Medicine 12/09/23 documented as of this encounter Additional Source Comments The information contained in this document represents components of the legal health record. It is not the complete legal health record.[facility]
--- OUTSIDE RECORDS SUMMARY | 2025-03-03 12:40 | XMS_ITS | Clinical Summary ---
Author Organization [facility] Address [address] [id number] Phone Care Team Providers Care Electrical Line Splicer Name Role Phone Alvarado Rangel DO Primary [...] 64 Admit Type: Outpatient Gender: Male Room: [place] [address] Referring MD: Paris Osuna Exam Type: Colonoscopy [...] monitored continuously. The Olympus adult variable colonoscope [id number] #5was introduced through the anus and advanced [...] 7:24 AM Procedure Code(s): --- Professional --- 88515, Colonoscopy, flexible; with biopsy, single or multiple --- Technical --- 72278, Colonoscopy, flexible; with biopsy, single or multiple Diagnosis Code(s): --- Professional --- R10.11, Right upper quadrant pain R19.4, Change in bowel habit K57.30, Diverticulosis of large intestine without perforation or abscess without bleeding --- Technical --- R10.11, Right upper quadrant pain R19.4, Change in bowel habit K57.30, Diverticulosis of large intestine without perforation or abscess without bleeding CPT copyright 2018 [employer]. All rights reserved. The codes documented in this report are preliminary and upon container packer operator reviewmay be revised to meet current compliance requirements. Procedure Date: 04/21/2020 7:24:16 AM [address] [place] [address] Paris Osuna MD GI PROCEDURE ORDERABLES F inal Result from Last 3 Months or Most Recently Relevant to Health Maintenance Insurance MEDICARE PART A & B [place] BLUE REPLACEMENT MEDICARE PART A & B Member Subscriber Plan / Payer (Ef fective 2019-Present) Name:Honorio Nelson Member ID:[id number] Relation to Subscriber:Self Name:Honorio Nelson Subscriber ID:[id number] Payer ID:[id number] Group ID:Not on file Type:Medicare Address: [employer] [address] [place] [address] MEDICARE PPO BLUE REPLACEMENT MEDICARE PART A & B Member Subscriber Plan / Payer (Ef fective 2019-Present) Name:Honorio Nelson Member ID:[id number] Relation to Subscriber:Self Name:Honorio Nelson Subscriber ID:[id number] Payer ID:[id number] Group ID:Not on file Type:Medicare Address: [employer] [address] [place], [place] [id number] MEDICARE PART A & B Member Subscriber Plan / Payer (Ef fective 2019-Present) Name:Honorio Nelson Member ID:[id number] Relation to Subscriber:Self Name:Honorio Nelson Subscriber ID:[id number] Payer ID:[id number] Group ID:Not on file Type:Medicare Address: [employer] [address] [place] [address] MEDICARE PART A & B Member Subscriber Plan / Payer (Ef fective 2019-Present) Name:Honorio Nelson Member ID:[id number] Relation to Subscriber:Self Name:Honorio Nelson Subscriber ID:[id number] Payer ID:[id number] Group ID:Not on file Type:Medicare Address: [employer] [address] [place] [address] [place] BLUE REPLACEMENT MEDICARE PART A & B Member Subscriber Plan / Payer (Ef fective 2019-Present) Name:Honorio Nelson Member ID:[id number] Relation to Subscriber:Self Name:Honorio Nelson Subscriber ID:[id number] Payer ID:[id number] Group ID:Not on file Type:Medicare Address: [employer] [address] [place] [address] MEDICARE PART A & B Member Subscriber Plan / Payer ( fective 2019-Present) Name:Honorio Nelson Member ID:[id number] Relation to Subscriber:Self Name:Honorio Nelson Subscriber ID:[id number] Payer ID:[id number] Group ID:Not on file Type:Medicare Address: [employer] [address] [place] [address] [facility] MEDICARE PPO BLUE REPLACEMENT MEDICARE PART A & B Member Subscriber Plan / Payer ( fective 2019-Present) Name:Honorio Nelson Member ID:[id number] Relation to Subscriber:Self Name:NelsonHonorio santos Subscriber ID:[id number] Payer ID:[id number] Group ID:Not on file Type:Medicare Address: [employer] [address] [place] [address] [facility] MEDICARE PPO BLUE REPLACEMENT MEDICARE PART A & B [place] BLUE REPLACEMENT Care Teams Electrical Line Splicer Relationship Specialty Start Date End Date Alavrado Rangel DO [address] [address] PCP - General Family Medicine 12/09/23 Additional Source Comments The information contained in this document represents components of the legal health record. It is not the complete legal health record.[facility]
--- OUTSIDE RECORDS SUMMARY | 2025-03-03 12:41 | XMS_ITS | Encounter Summary ---
Author Organization [facility] Address [address] [place] [address] Phone Care Team Providers Care Slot Machine Key Person Name Role Phone Paris Osuna MD Primary Care Provider + [phone] Alvarado Rangel DO Primary Care Provider + [phone] Reason for Referral * Physical Therapy (Routine) - Closed Specialty Diagnoses / Procedures Referred By Contac t Referred To Contact Physical Therapy Diagnoses Encounter for rehabilitation Paris Osuna MD [address] [place] [address] Phone: tel: fax: [email or web address] [place] [address] Phone: tel: Referral ID Status Reason Start Date Expiration Date Visits Re quested Visits Authorized [id number] Closed 06/08/2022 04/14/2023 99 99 Encounter Details Date Type Department Care Team (Latest Contact Info) Description 06/08/2022 Transcribe Orders [facility] [address] [place] [address] Paris Osuna MD [address] [place], [place] [id number] [email or web address] Encounter for rehabilitation (Primary Dx) Social [...] Date/Time Associated Diagnosis Comments AMB REFERRAL TO [facility] PHYSICAL THERAPY Routine 06/20/2022 7:40 AM EST Encounter for rehabilitation documented in this encounter Results * Ambulatory referral to [facility] Physical Therapy (06/20/2022 7:40 AM EST) Other us Paris Osuna MD AMB [facility] REFERRALS Final R esult documented in this encounter Visit Diagnoses Diagnosis Encounter for rehabilitation- Primary documented in this encounter Care Teams Slot Machine Key Person Relationship Specialty Start Date End Date Paris Osuna MD [address] [place] [address] [email or web address] PCP - General Family Medicine 04/21/2012/07 Alvarado Rangel DO [address] [address] PCP - General Family Medicine 12/09/23 documented as of this encounter Additional Source Comments The information contained in this document represents components of the legal health record. It is not the complete legal health record.[facility]
--- NOTE | 2025-03-16 11:55 | HO.ANESPROP2 ---
Documented by User: Fay Faria NP 03/16/25 11:57 HPI - Anesthesia Eval Consult details Narrative: 69yo M for Bilateral Diagnostic L3-4 and L5 Dorsal Ramus Medial Branch Block PMFSH Active Problems Active Problems: All Active Problems Chronic pain syndrome (Acute) Spondylosis of lumbar region without myelopathy or radiculopathy (Acute) Vertebrogenic low back pain (Acute) Sacroiliitis, not elsewhere classified (Acute) Past Medical History Medical History Generalized anxiety disorder HLD (hyperlipidemia) HTN (hypertension) Surgical History Surgical History History of surgery Hx of colonoscopy Social History Social History Household Members: None Housing: House Are you a primary acute care surgeon to a significant other at home: No Do you presently have visiting nurse or other home services: No Patient Tobacco Use Status: Never used Tobacco Use of substances other than those prescribed or required for medical reasons: No Have you been hit, kicked, punched, or otherwise hurt by someone within the past year? If so, by whom?: No Are you DNR?: No Advance Directives: No Advance Directives Information Provided: Yes Advance Directives on File: No Meds Allergies Allergy/AdvReac Type Severity Reaction Status Date / Time No Known Allergies Allergy Verified 03/17/25 15:16 Home Medications ?Medication ?Instructions ?Recorded ?Confirmed ?Last Taken ?Type amlodipine 5 mg tablet 10 mg PO DAILY 10/21/24 03/17/25 03/19/25 History atorvastatin 40 mg tablet 40 mg PO DAILY 10/21/24 03/17/25 Unknown History escitalopram oxalate 20 mg tablet 20 mg PO DAILY 10/21/24 03/17/25 Unknown History (Lexapro) losartan 100 mg tablet 100 mg PO DAILY 10/21/24 03/17/25 Unknown History aspirin 81 mg tablet 81 mg PO DAILY 03/17/25 03/17/25 03/12/25 History Ozempic 03/19/25 03/11/25 History Assessment and Plan Assessment Anesthesia Assessment: Chart Reviewed Documented by User: Jena López MD 03/19/25 09:22 [facility] Past Medical History Medical History Generalized anxiety disorder HLD (hyperlipidemia) HTN (hypertension) Family History Family history of problems with anesthesia: No Surgical History Surgical History History of surgery Hx of colonoscopy History of Problems with Anesthesia: No Social History Social History Household Members: None Housing: House Are you a primary acute care surgeon to a significant other at home: No Do you presently have visiting nurse or other home services: No Patient Tobacco Use Status: Never used Tobacco Use of substances other than those prescribed or required for medical reasons: No Have you been hit, kicked, punched, or otherwise hurt by someone within the past year? If so, by whom?: No Are you DNR?: No Advance Directives: No Advance Directives Information Provided: Yes Advance Directives on File: No Meds Allergies Allergy/AdvReac Type Severity Reaction Status Date / Time No Known Allergies Allergy Verified 03/17/25 15:16 Home Medications ?Medication ?Instructions ?Recorded ?Confirmed ?Last Taken ?Type amlodipine 5 mg tablet 10 mg PO DAILY 10/21/24 03/17/25 03/19/25 History atorvastatin 40 mg tablet 40 mg PO DAILY 10/21/24 03/17/25 Unknown History escitalopram oxalate 20 mg tablet 20 mg PO DAILY 10/21/24 03/17/25 Unknown History (Lexapro) losartan 100 mg tablet 100 mg PO DAILY 10/21/24 03/17/25 Unknown History aspirin 81 mg tablet 81 mg PO DAILY 03/17/25 03/17/25 03/12/25 History Ozempic 03/19/25 03/11/25 History Exam Airway Mallampati Class: III TM Dist: <=3cm Neck ROM: Limited Heart: rrr Lungs: cta Assessment and Plan Assessment Anesthesia Assessment: Anesthesia Plan Discussed Final Anesthetic Review Family History of Problems with Anesthesia: No History of Problems with Anesthesia: No NPO: Yes ASA Class: III Final Preanesthetic Review: No Changes in Pt Med Stat, Meds/Allgs Chart Reviewed, Consent Obtained/Reviewed and Anes Risks/Benef Reviewed Patient Risk: Intermediate Procedure Risk: Low Anesthetic Plan Anesthetic Plan: MAC: and Agree w/ Assess. and Plan Disposition: Standard PACU
[2025-03-17 15:14] VITALS: BMI 39.4
--- NOTE | ~2025-03-19 | FL_ITS ---
EXAMINATION: FLUOROSCOPY GUIDANCE FOR NEEDLE PLACEMENT CLINICAL INFORMATION: dx l3-4 and l5 MBB, bilateral COMPARISON: Previous fluoroscopy exam December 2024 TECHNIQUE: Fluoroscopic guidance provided for pain management procedure. FINDINGS: 12 images demonstrate needle placement and contrast injection adjacent to the bilateral lateral lower lumbar vertebrae. See procedure note for detailed findings. FLUOROSCOPY TIME: 41 seconds DOSE AREA PRODUCT: 7.7 Gy-cm2 FL/FL guidance in OR IMPRESSION: Fluoroscopy guidance for pain management procedure. Electronically signed by: Vidya Cervantes MD 03/19/2025 10:42 AM [facility]
[2025-03-19 08:32] VITALS: BP 143/79; PULSE 62; RESP 16; TEMP 36.3; O2SAT 96
[2025-03-19] MEDS: Lactated Ringers 1,000 ML 100 ML IVCONT (08:55)
--- NOTE | 2025-03-19 09:10 | MHC.SHP ---
Pre-Procedural Eval Section A - 24 Hr Update-Section A only Date of Service: 03/19/25 The patient is an INPATIENT: No Changes since office visit: Yes Patient answered all questions The patient has been examined within 24 hours of the surgical procedure. The History & Physical has been completed within 30 days and I have reviewed it.: No Section B - Complete if H&P > 30 days Chief Complaint: Spondylosis without myelopathy or radiculopathy, Details of Present Illness: As above Relevant Family History (Specify if Yes): No Relevant Social History: None Present Medications: see Short Stay Collaborative assessment Medical History: Significant History (Morbid obesity) History of Previous Operations: No relevant previous surgery Allergies: Allergies Allergy/AdvReac Type Severity Reaction Status Date / Time No Known Allergies Allergy Verified 03/17/25 15:16 Review of Systems Sugical H&P ROS: Negative: Cardiovascular, Respiratory, Neurological, Psychiatric, Hem-Onc, Allergic/Immunologic, Gastrointestinal, Genitourinary, Integumentary, Endocrine and Eyes/Ears/Nose/Throat and Yes, Specify: Constitution (Morbid obesity) and Musculoskeletal (Spondylosis lumbar without myelopathy or radiculopathy) Exam Surgical H&P Exam: Normal: HEENT, Normal: Heart, Normal: Lungs, Normal: Extremities, Normal: Skin and Normal: Neurological and Significant Findings: Abdomen (Enlarged due to fat) Plan Diagnosis/Plan: Unchanged I have reviewed the history and physical and performed a pertinent physical examination on my patient. No changes have occurred unless specified. I am going to perform diagnostic #2 Medial branch block L3, L4, dorsal ramus L5 bilateral using bupivacaine with epinephrine. Time Spent With Patient Time: Total time managing care of this patient today _ 5 ___ minutes.
[2025-03-19 10:00] VITALS: BP 113/73; PULSE 76; RESP 19; TEMP 36.6; O2SAT 97
--- NOTE | 2025-03-19 10:02 | PM.OP ---
Brief Operative Note Date of Service: 03/19/25 Pre-op diagnosis: Spondylosis lumbar without myelopathy or radiculopathy Post-op diagnosis: same Procedure: Diagnostic #2 medial branch block L3, L4, dorsal ramus L5 bilateral Surgeon: Roland Laboy MD Anesthesia: MAC Was an Commercial Green Retrofit Architect used for this Procedure?: No Estimated blood loss (mL): 0 Condition: stable Disposition: PACU
--- NOTE | 2025-03-19 10:04 | W.PM.OPN ---
Operative Note Operative Note Date of Service: 03/19/25 Narrative: Diagnostic medial branch block L3,L4 dorsal ramus L5 bilateral.? ? ?Informed consent was explained to the patient. All questions were explained and? answered.? The patient was taken inside the operating room where he was positioned prone on the operating table. ASA monitors were applied and patient was minimally sedated. Time-out was performed delineating correct site, side, the nature of the procedure, patient's allergy, . All operating room staff was participating in OR time-out procedure. ? ? The lower back was prepped with ChloraPrep and draped with sterile utility towels.? C-arm was brought over the operating field and sq picture of L4-, L5 vertebra and S1 AREA were delineated on the screen.? Significant scoliosis and rotational lordosis are noted. Point of interest were delineated as confluence of superior articular process of L4 and L5 vertebra bilaterally with corresponding transverse processes as well as confluence of the sacral alae bilaterally with superior articular process of S1.? The projection of the point of interest to the skin were injected with the small amount of local anesthetic lidocaine 2% . After that 22 gauge 5 inch spinal needle was driven sequentially to the points of interest in tunnel vision fashion. After needles gently contacted the bone at the point of interests the needle was injected with small amount of the contrast.? The injection of the contrast did not demonstrate any intravascular or intrathecal spread of the contrast.? After that injection of the? bupivacaine 0.5% with AP as than 1 cc was performed at each needle location.?After that the needles were removed and Bandaids were applied. Patient was transferred stable to PACU.
[2025-03-19 10:05] VITALS: BP 104/60; PULSE 74; RESP 15; O2SAT 96
[2025-03-19 10:10] VITALS: BP 115/67; PULSE 71; RESP 15; O2SAT 96
[2025-03-19 10:15] VITALS: BP 120/74; PULSE 70; RESP 16; TEMP 37.1; O2SAT 96
== END 2025-03-19 10:58 | disposition home or self-care (01) ==
PROVIDERS: PCP Family Medicine; Visit Provider Anesthesiology
PROC: (CPT 64493; principal; 2025-03-19 09:30)
DX: M47.816 Spondylosis without myelopathy or radiculopathy, lumbar region (principal); G89.4 Chronic pain syndrome; M54.51 Vertebrogenic low back pain
CPT/HCPCS: 64493; 64494; J2003; J2250; J2704; J3010; Q9967

== ENCOUNTER → 2025-03-19 07:50 | Outpatient (BNV) | payer MEDICARE, SELFPAY | PROVIDERS: PCP Family Medicine; Visit Provider Anesthesiology | DX: M47.816 Spondylosis without myelopathy or radiculopathy, lumbar region (principal) | CPT/HCPCS: 64493; 64494; 64495 ==

== ENCOUNTER 2025-03-25 10:34 | Outpatient (AMB) | payer MEDICARE, SELFPAY ==
--- NOTE | 2025-03-25 10:36 | A.OFFVIS_ITS ---
Vital Signs 03/25/25 10:41 Weight 257 lb BP 163/84 H Blood Pressure Location Lt brachial Position Sitting Respiration 16 Pulse 73 Pulse Source Pulse Oximeter Pulse Oximetry (%) 97 Oxygen Delivery Method Room Air Intake Visit Reasons: S/p B/l Dx L3-L4-DR L5 MBB 03/19/25 Resident Care Technician Required: No Accompanied by: Self / Same As Patient Allergies No Known Allergies Allergy (Verified 03/25/25 10:42) HPI Comments Details: Honorio is back in my office diagnostic 2 medial branch block. She reports uncertain magnitude of the pain relief. He did not bring his pain diary with him. He also reported that his pain is variable in nature and sometimes for significant period of time he has no pain whatsoever in his lower back and sometimes his pain is very severe 9-10 out of 10. Therefore even the validity of the 1st medial branch block diagnostic 1 I have to question and the pain relief after the 1st medial branch block maybe not a result of the block but rather natural variability of his pain. We discussed possibility of further treatment of his pain with spinal cord stimulator Nevro. I offered him to go for psychological evaluation with [facility]. He was given a brochure of [facility]. After he will past psychological evaluation we will schedule him for Nevro SCS trial. Prior: Axial lower back pain with minimal radiation into bilateral lower extremities. The pain is mostly axial and most likely facetogenic in nature. He reports that he started to feel this pain years ago. He reports unpleasant vibration sensation in the left thigh in conjunction with this pain. He reports that prolonged sitting without the cushion aggravate his pain he reports that walking and standing for long period of time aggravate his pain. Negative Valsalva maneuver, he reports hot showers make his pain better. He went to Dr. Alonso and received from Dr. Stack is bilateral sacroiliac joint injection with steroids!!! This procedure lasted only 4 days. He received multiple sessions of physical therapy and he continues home exercise program at this time. He reports only minimal help from [facility] Medical History Generalized anxiety disorder HLD (hyperlipidemia) HTN (hypertension) Surgical History History of surgery Hx of colonoscopy Social History Household Members: None Housing: House Are you a primary manager career to a significant other at home: No Do you presently have visiting nurse or other home services: No Patient Tobacco Use Status: Never used Tobacco Review of Systems Const All systems reviewed & are unremarkable except as noted in HPI and below ENT Reports Normal hearing present Neuro Reports Normal hearing present, Denies Abnormal speech present, Denies confusion and Denies Sensory deficit (Neuro) Psych Denies confusion Physical Exam Vital Signs: Last Vital Signs Pulse 73 03/25/25 10:41 Resp 16 03/25/25 10:41 BP 163/84 H 03/25/25 10:41 Pulse Ox 97 03/25/25 10:41 Oxygen Delivery Method Room Air 03/25/25 10:41 Const General: no acute distress; No confusion Nutritional Appearance: obese morbidly obese Orientation/consciousness: patient oriented x3 and No confusion Eyes General: appearance normal, both eyes and all related structures Pupils: Equal, round and reactive pupils present EOM: EOMs intact bilaterally Neck Neck: Yes full ROM Chest Chest palpation & inspection: normal inspection of the chest Resp Effort & Inspection: normal respiratory effort, able to speak in complete se ntences, normal respiratory pattern, no audible wheezes and no cough Cardio Jugular venous distension: no JVD GI Inspection: Yes normal to inspection Back/Spine/Pelvis Other: There is no tenderness on palpation in paraspinal spinal region lumbar spine. There is minimal tenderness on palpation in projection of the sacral bone. There is no tenderness on palpation in projection of the sacroiliac joints. Nicanor test is negative bilaterally. Gaenslen test is negative bilaterally. Pelvic distraction test is negative bilaterally. On performance of Nicanor test patient complains on pain in the groin but NOT the pain in the projection of the sacroiliac joints on the back. Valsalva maneuver is negative bilaterally. Loading test is equivocal bilaterally. There is minimal tenderness on palpation in paraspinal region in the projection of the L5-S1 area. Neuro General: patient oriented x3, gait normal and No confusion Cranial nerves: Yes CN's II-XII intact bilaterally, Yes Equal, round and reactive pupils present, Yes Normal hearing present and Yes Ability to bilaterally elevate shoulders present Speech: No Abnormal speech present Gait exam (Neuro): Normal gait present Motor exam (neuro): 5/5 motor strength present throughout Sensory Exam: No Sensory deficit (Neuro) Extrem General: No pedal edema Psych Speech and movement: Normal speech and movement present Affect: normal affect Attitude: cooperative Thought process: Normal thought process present Thought content: Normal thought content present Insight: Good insight present (Psych) Judgement: Good judgement present (Psych) Assessment & Plan Assessment & Plan (1) Vertebrogenic low back pain: Code(s): M54.51 - Vertebrogenic low back pain Category: Medical (2) Spondylosis of lumbar region without myelopathy or radiculopathy: Code(s): M47.816 - Spondylosis without myelopathy or radiculopathy, lumbar region Category: Medical (3) Chronic pain syndrome: Code(s): G89.4 - Chronic pain syndrome Category: Medical Plan Diagnostic 2. Medial branch block resulted in uncertain pain relief. Unlike the diagnostic 1. Block which was significantly effective. However his pain is variable and the results of the injection could be attributed to systemic action of local anesthetic. Possibility of treatment of his lower back pain was discussed today using Nevro SCS. Brochure of [facility] was given to the patient. He has an access to the computer and he will be able to pass psychological evaluation. After that we will schedule him for the trial of the Nevro SCS. Coding Level of Care Code Est Pt Level 3 (41731) Diagnoses Vertebrogenic low back pain M54.51 Spondylosis of lumbar region without myelopathy or radiculopathy M47.816 Chronic pain syndrome G89.4
[2025-03-25 10:41] VITALS: BP 163/84; PULSE 73; RESP 16; O2SAT 97
== END 2025-03-25 11:13 | disposition home or self-care (01) ==
LOC: HO.PMC 10:35
PROVIDERS: Visit Provider Anesthesiology
DX: M54.51 Vertebrogenic low back pain (principal); M47.816 Spondylosis without myelopathy or radiculopathy, lumbar region; G89.4 Chronic pain syndrome
CPT/HCPCS: 99213

== ENCOUNTER → 2025-03-25 10:34 | Outpatient (BNVA) | payer MEDICARE, SELFPAY | PROVIDERS: Visit Provider Anesthesiology | DX: M47.816 Spondylosis without myelopathy or radiculopathy, lumbar region (principal); G89.4 Chronic pain syndrome | CPT/HCPCS: 99212 ==